=== PATIENT | female | born 1980 | race Caucasian/White ===

== ENCOUNTER → 2016-05-29 | Outpatient (CLI) | payer BC ==
[~2016-05-29] MED LIST: PRENATAL1 TA1
== END ==
LOC: LDRO 09:09
DX: Z53.9 Procedure and treatment not carried out, unspecified reason (principal)

== ENCOUNTER 2016-07-08 00:13 | Outpatient (CLI) | payer BC ==
[~2016-07-08] VITALS: Ht 157.5 cm; Wt 79.1 kg
[2016-07-08 00:21] VITALS: BP 128/74; PULSE 75; TEMP 97.5
[2016-07-08 01:51] VITALS: BP 121/78; PULSE 57; TEMP 98.5
== END 2016-07-08 01:45 | disposition home or self-care (01) ==
LOC: LDRO 00:13
DX: O47.1 False labor at or after 37 completed weeks of gestation (principal); Z3A.39 39 weeks gestation of pregnancy

== ENCOUNTER 2016-07-08 09:17 | Inpatient (IN) | payer BC ==
[2016-07-08] VITALS (29 sets, daily range): BP systolic 111–138; BP diastolic 59–86; PULSE 59–93; TEMP 97.8–98.2
[~2016-07-08] VITALS: Ht 157.5 cm; Wt 78.2 kg
[2016-07-08 10:08] LABS: BASO % 0.1 % (0.0-2.0); EOS % 0.1 % (0-4.0); GRAN # 9.1 (1.4-6.5); GRAN % 80.6 % (42.2-75.2); LYMPH # 1.6 (1.2-3.4); LYMPH % 14.1 % (20.0-51.0); MEAN CELL VOLUME 84 fl (80.0-100.0); MEAN CORPUSCULAR HGB CONC 33 g/dl (33.0-37.0); MONO # 0.5 (0.1-0.6); MONO % 4.5 % (1.7-9.3); PLATELET COUNT 120 K/mm3 (130-400); RED BLOOD COUNT 3.81 M/mm3 (4.10-5.30); WHITE BLOOD COUNT 11.2 K/mm3 (4.8-10.8)
[2016-07-08 10:11] LABS: HEMATOCRIT 31.9 % (37.0-47.0); HEMOGLOBIN 10.6 g/dl (12.5-16.0); MEAN CORPUSCULAR HEMOGLOBIN 28 pg (27.0-31.0)
[2016-07-09 02:15] VITALS: BP 107/64; PULSE 68; TEMP 98.1
[2016-07-09 06:45] VITALS: BP 107/62; PULSE 65; TEMP 97.6
[2016-07-09 16:08] VITALS: BP 116/70; PULSE 66; TEMP 97.7
[2016-07-09 21:20] VITALS: BP 119/69; PULSE 64; TEMP 97.6
[2016-07-10 07:00] VITALS: BP 114/66; PULSE 78; TEMP 97.8
== END 2016-07-10 11:55 | disposition home or self-care (01) | DRG 775 ==
LOC: LDRO 09:17 → LDR 09:44 → OB 16:45
PROVIDERS: Obstetrics & Gynecology
PROC: 10E0XZZ Delivery of Products of Conception, External Approach (ICD-10-PCS; principal; 2016-07-08)
DX: O99.824 Streptococcus B carrier state complicating childbirth (principal); Z3A.39 39 weeks gestation of pregnancy; Z37.0 Single live birth
CPT/HCPCS: J2540; J2590; J2795; J7120

== ENCOUNTER 2018-08-27 17:11 | Emergency (ER) | payer BC ==
[~2018-08-27] VITALS: Ht 167.6 cm; Wt 70.9 kg
[2018-08-27 17:22] VITALS: TEMP 97.5
[2018-08-27 18:10] LABS: BASO % 0.2 % (0.0-2.0); EOS % 0.4 % (0-4.0); GRAN # 5.3 (1.4-6.5); GRAN % 65.8 % (42.2-75.2); HEMOGLOBIN 11.6 g/dl (12.5-16.0); LYMPH # 2.1 (1.2-3.4); LYMPH % 26.4 % (20.0-51.0); MEAN CELL VOLUME 85 fl (80.0-100.0); MEAN CORPUSCULAR HEMOGLOBIN 29 pg (27.0-31.0); MEAN CORPUSCULAR HGB CONC 34 g/dl (33.0-37.0); MEAN PLATELET VOLUME 10.6 fl (7.4-10.4); MONO # 0.6 (0.1-0.6); PLATELET COUNT 197 K/mm3 (130-400); RED BLOOD COUNT 4.04 M/mm3 (4.10-5.30); REDCELL DISTRIBUTION WIDTH-CV 13.2 % (11.5-14.5)
[2018-08-27 18:17] LABS: HEMATOCRIT 34.4 % (37.0-47.0)
[2018-08-27 18:27] LABS: ALANINE AMINOTRANSFERASE 11 U/L (9-52); ALBUMIN 4.4 gm/dL (3.5-5.0); ALKALINE PHOSPHATASE 68 U/L (50-136); ANION GAP 12 mmol/L (7-16); AST,SGOT 25 U/L (15-37); BILIRUBIN,TOTAL 0.4 mg/dL (0.0-1.0); BLOOD UREA NITROGEN 12 mg/dL (7-17); C-REACTIVE PROTEIN 0.6 mg/dL (0.0-0.9); CALCIUM 9.6 mg/dL (8.4-10.2); CARBON DIOXIDE 23 mmol/L (22-30); CHLORIDE 107 mmol/L (98-107); CREATININE, serum 0.68 (0.52-1.25); GLUCOSE 103 mg/dL (74-106); LIPASE 88 U/L (23-300); POTASSIUM 4.2 mmol/L (3.4-5.0); SODIUM 141 mmol/L (137-145); TOTAL PROTEIN 8.3 gm/dL (6.4-8.2)
[2018-08-27 18:35] LABS: TROPONIN-I < 0.012 ng/mL (0.000-0.035)
[2018-08-27 19:02] VITALS: BP 114/79; PULSE 79
[2018-08-27] MEDS ORDERED: PEPCID 20MG TAB20 MG PO (19:03)
== END 2018-08-27 19:07 | disposition home or self-care (01) ==
LOC: COL.ER 17:11
PROVIDERS: Emergency Medicine
DX: R07.89 Other chest pain (principal)

== ENCOUNTER 2019-07-02 11:00 | Outpatient (RCR) | payer BC ==
[2019-06-28 11:14] VITALS: BP 132/20; PULSE 104; TEMP 97.9
[2019-06-28 12:13] VITALS: BP 122/68; PULSE 105
[2019-06-30 13:14] VITALS: BP 119/76; PULSE 106; TEMP 97.7
--- NOTE | 2019-06-30 14:20 | NUR ---
Spoke with Mag,OB charge nurse for heart tones check.Per Mag,she called office and reports pt does not need to go to office today for check due to her having apt in [place] tomorrow for check.Per OB dept they are unable to do a check on triplets in the [facility].Pt did go to OB office after her last appt on [place] for check as instructed.
[~2019-07-02] VITALS: Ht 167.6 cm; Wt 83.9 kg
[~2019-07-02 11:00] MED LIST changes: +NATURAL IRON65 MG PO; +PEPCID 20MG TAB20 MG PO
[2019-07-02 12:00] VITALS: BP 95/51; PULSE 110; TEMP 97.9
== END 2019-07-05 16:36 | disposition home or self-care (01) ==
LOC: EUO 11:00
DX: O99.013 Anemia complicating pregnancy, third trimester (principal)
CPT/HCPCS: J2916

== ENCOUNTER 2019-07-05 02:38 | Outpatient (CLI) | payer BC ==
[~2019-07-05] VITALS: Ht 157.5 cm; Wt 84.1 kg
--- NOTE | 2019-07-05 02:40 | NUR ---
EMS here with pt transported with vag bleeding bright red triplets hx previa. Has received iron infusions SSE CLOTS AND FLUID VAGINALLY- FHR X3 AUDIBLE
[2019-07-05 03:00] VITALS: BP 140/90; PULSE 100; TEMP 98.3
[2019-07-05 03:13] VITALS: BP 140/90; PULSE 100; TEMP 98.3
[2019-07-05 03:19] LABS: MEAN CELL VOLUME 87 fl (80.0-100.0); MEAN CORPUSCULAR HGB CONC 32 g/dl (33.0-37.0); MEAN PLATELET VOLUME 12.2 fl (7.4-10.4); PLATELET COUNT 87 K/mm3 (130-400); RED BLOOD COUNT 2.87 M/mm3 (4.10-5.30); REDCELL DISTRIBUTION WIDTH-CV 20.8 % (11.5-14.5)
[2019-07-05 03:22] LABS: HEMOGLOBIN 7.9 g/dl (12.5-16.0); MEAN CORPUSCULAR HEMOGLOBIN 28 pg (27.0-31.0)
--- NOTE | 2019-07-05 03:25 | NUR ---
0325 DR BARNES HERE. LABS DRWN. SSE AND BEDSIDE US PER DR BARNES.MRIGHT RED AND CLOTS DURING SSE. SWABBED CERVIX REVEALS CLEAR LIQUID THRU CLOSED CERVIX. 0345 HS NOTIFIED OF NEED TO TRANSPORT. [address] BARNES ARRANGING TRANSFER TO [facility] BY AIR.DISCUSSED TRANSFER WTIH PT AND SPOUSE - QUESTIONS ADDRESSED 0350 SNYDER INSERTED. ZOFRAN FOR NAUSEA. 0420 MG 4 GM BOLUS STARTS 0349 CELESTONE IM 0405 REPORT TO DEVORA POLK [facility] 0445 EMS HERE 0500 DISCHARGED TO [facility] SPOUSE TO FOLLOW IN POV. MAG 2 GM PER HOUR ON EMS PUMP RT ARM. LR 125CC HR GRAVITY DRIP LEFT
[2019-07-05 03:34] LABS: ANISOCYTOSIS 3+; BAND 2 % (0-10); LYMPHOCYTE 25 % (20.0-51.0); NEUTROPHILS 67 % (42.0-75.2); PLATELET ESTIMATE DECREASED (NORMAL)
--- NOTE | 2019-07-05 04:45 | NUR ---
Pad and panties on for transport-small bright red bleeding. occasional backa chichi
--- NOTE | 2019-07-05 04:47 | NUR ---
report to [place] [facility]- and [facility] triage notified of arrival
== END 2019-07-05 05:00 | disposition critical access hospital (66) ==
LOC: LDRO 02:38
PROVIDERS: Obstetrics & Gynecology
DX: O46.8X3 Other antepartum hemorrhage, third trimester (principal); Z3A.31 31 weeks gestation of pregnancy
CPT/HCPCS: J0702; J2405; J3475; J7120

== ENCOUNTER → 2023-10-13 | Outpatient (CLI) | payer BC | LOC: MC.RAD 08:40 | DX: Z12.31 Encounter for screening mammogram for malignant neoplasm of breast (principal) ==